=== PATIENT | female | born 1955 | race Asian ===

== ENCOUNTER 2023-03-11 08:56 | Day surgery (SDC) | payer OTHER ==
[~2023-03-11] VITALS: Ht 177.8 cm; Wt 63.0 kg
[2023-03-11] MEDS ORDERED: fentaNYL citrate 0.05 MG/ML VIAL ONE (11:23)
[2023-03-11] MEDS ORDERED: LIDOCAINE 2% 100 MG/5 ML UJET TP ONE (11:23)
[2023-03-11] MEDS ORDERED: diphenhydrAMINE 50 MG/ML VIAL ONE (11:23)
[2023-03-11] MEDS ORDERED: MIDAZOLAM 5 MG/5 ML VIAL ONE (11:23)
[2023-03-11] MEDS: MIDAZOLAM 2 MG/2 ML VIAL IVP ONE (11:32)
[2023-03-11] MEDS: fentaNYL citrate 0.05 MG/ML VIAL IVP ONE (11:33)
[2023-03-11] MEDS: LIDOCAINE 2% 100 MG/5 ML UJET TP ONE (16:00)
== END 2023-03-11 12:30 | disposition home or self-care (01) ==
LOC: MDS 08:56 → MMU 08:58 → MDS 12:30
PROVIDERS: ATTEND Internal Medicine Gastroenterology
DX: Z12.11 Encounter for screening for malignant neoplasm of colon (principal); K63.5 Polyp of colon; Z80.0 Family history of malignant neoplasm of digestive organs; Z90.49 Acquired absence of other specified parts of digestive tract
CPT/HCPCS: 45385; J2250; J3010; J1200